=== PATIENT | female | born 1980 | race Caucasian/White ===

== ENCOUNTER → 2021-03-10 | Outpatient (CLI) | payer OTHER ==
[~2021-03-10] MED LIST: CHOLECALCIFEROL PO; GABAPENTIN800 MG PO; HYDROCODON-ACE1 EAC2 PO; LIDOCAINE1 EAC1 TP; LIPITOR TAB 2020 MG PO; LISINOPRIL10 MG PO
--- NOTE | 2021-03-10 09:54 | NUR ---
Single lumen PICC line inserted in the left basilic vein, utilizing US guidance, cut to 45 cm. 3CG technology used to confirm PICC tip in SVC. Upper arm circ = 31cm, lower arm circ = 29 cm. Sterile technique used throughout case. Sterile dsg applied and dated. No complications.
== END ==
LOC: OPSV 07:43
DX: M86.9 Osteomyelitis, unspecified (principal)
CPT/HCPCS: C1751

== ENCOUNTER → 2021-03-13 | Day surgery (SDC) | payer OTHER ==
[~2021-03-13] VITALS: Ht 167.6 cm; Wt 91.2 kg
[~2021-03-13] MED LIST changes: +OXYCODON-ACETA1 EAC1 PO; +VANCOMYCIN1 GM/2002 IV
[2021-03-13 10:51] LABS: BUN/CREATININE RATIO 11 (0-10)
== END | disposition home or self-care (01) ==
LOC: OR 05:47
PROVIDERS: Orthopaedic Surgery
DX: M86.8X4 Other osteomyelitis, hand (principal); I10 Essential (primary) hypertension; E78.5 Hyperlipidemia, unspecified; F17.210 Nicotine dependence, cigarettes, uncomplicated; Z91.048 Other nonmedicinal substance allergy status; Z79.899 Other long term (current) drug therapy; Z20.822 Contact with and (suspected) exposure to COVID-19
CPT/HCPCS: 80048; 87070; 87205; J1100; J1885; J2001; J2250; J2405; J2704; J2795; J3010; J3370; J7030; J7070; J7120